=== PATIENT | female | born 1985 | race Caucasian/White ===

== ENCOUNTER 2021-10-22 19:32 | Emergency (ER) | payer SELFPAY ==
[~2021-10-22] VITALS: Ht 149.9 cm; Wt 69.9 kg
[~2021-10-22 19:32] MED LIST: FER300L PO; [UNRECOGNIZED DRUG - CODE] PO
[2021-10-22 20:26] VITALS: BP 106/44
--- NOTE | 2021-10-22 20:31 | NUR ---
PATIENT TO LOBBY
[2021-10-22] MEDS ORDERED: OFLO5SOL27 LEFT EAR (20:49)
[2021-10-22 21:52] VITALS: BP 106/44
--- NOTE | 2021-10-22 21:53 | NUR ---
Patient discharged with v/s stable. Written and verbal after care instructions given and explained. Patient verbalized understanding. Ambulatory with steady gait. All questions addressed prior to discharge. Advised to follow up with PMD.
== END 2021-10-22 21:41 | disposition home or self-care (01) ==
LOC: MED 19:32
DX: H72.92 Unspecified perforation of tympanic membrane, left ear (principal); J45.909 Unspecified asthma, uncomplicated
CPT/HCPCS: 99281

== ENCOUNTER 2023-08-26 17:29 | Emergency (ER) | payer BC ==
[~2023-08-26] VITALS: Ht 152.4 cm; Wt 72.6 kg
[~2023-08-26 17:29] MED LIST changes: +OFLO5SOL27 LEFT EAR
[2023-08-26 18:02] VITALS: BP 109/63; PULSE 68; RESP 18; TEMP 97.5; O2SAT 98
[2023-08-26 21:09] LABS: FLU A ANTIGEN negative (NEGATIVE); FLU B ANTIGEN NEGATIVE (NEGATIVE)
[2023-08-26] MEDS ORDERED: ALBU0.0912 IH (21:30)
[2023-08-26] MEDS ORDERED: AZIT250T4 PO (21:30)
[2023-08-26] MEDS ORDERED: CETI10SG1 PO (21:30)
[2023-08-26] MEDS ORDERED: FLONAS NS (21:30)
[2023-08-26 21:44] VITALS: BP 121/80; PULSE 62; RESP 16; TEMP 98; O2SAT 99
== END 2023-08-26 21:44 | disposition home or self-care (01) ==
LOC: MED 17:29
DX: J20.9 Acute bronchitis, unspecified (principal); Z20.822 Contact with and (suspected) exposure to COVID-19; J45.909 Unspecified asthma, uncomplicated; Z79.899 Other long term (current) drug therapy
CPT/HCPCS: 71045; 87426; 87804; 99284; Q0092